=== PATIENT | male | born 1980 | race Caucasian/White ===

== ENCOUNTER 2023-01-25 12:53 | Emergency (ER) | payer BC | END 2023-01-25 13:29 | disposition home or self-care (01) | LOC: NAV ERS 12:53 | DX: M62.830 Muscle spasm of back (principal); F17.290 Nicotine dependence, other tobacco product, uncomplicated | CPT/HCPCS: 99283 ==

== ENCOUNTER 2023-02-25 10:09 | Outpatient (CLI) | payer BC | END 2023-02-25 10:10 | disposition home or self-care (01) | LOC: NAV RAD 10:09 | PROVIDERS: ATTEND Family Medicine | DX: M54.50 Low back pain, unspecified (principal); S32.039A Unspecified fracture of third lumbar vertebra, initial encounter for closed fracture | CPT/HCPCS: 72100 ==